=== PATIENT | male | born 1965 | race Caucasian/White ===

== ENCOUNTER 2017-04-03 21:50 | Emergency (ER) | payer OTHER ==
--- NOTE | 2017-04-03 22:30 | EDPHY ---
H & P Stated Complaint: left flank pain, cough HPI/ROS: HPI CHIEF COMPLAINT: Left flank pain, left upper abdominal pain HISTORY OF PRESENT ILLNESS: This patient very pleasant 52-year-old male, history of hypertension who presents emergency room left upper quadrant abdominal pain. Patient states he has had this left upper quadrant pain for approximately 4 days. He has not had any vomiting or diarrhea. The pain is rather severe 8/10 left upper quadrant. Describes sharp stabbing nonradiating. He does report that he fell on that side March 15. Additionally reports he has had a cough. He states the past 2 weeks he had a influenza like illness. He denies any chest pain or shortness of breath. Main complaint left upper quadrant abdominal pain Past Medical History: Hypertension Past Surgical History: Denies surgical history Social History: Denies daily use drugs alcohol tobacco products. Family History: Noncontributory ROS REVIEW OF SYSTEMS: A comprehensive 10 point review of systems is otherwise negative aside from elements mentioned in the history of present illness. Exam Constitutional appears well nontoxic triage nursing summary reviewed, vital signs reviewed, awake/alert. Eyes normal conjunctivae and sclera, EOMI, PERRLA. HENT normal inspection, atraumatic, moist mucus membranes, no epistaxis, neck supple/ no meningismus, no raccoon eyes. Respiratory clear to auscultation bilaterally, normal breath sounds, no respiratory distress, no wheezing. Cardiovascular rate normal, regular rhythm, no murmur, no edema, distal pulses normal. Gastrointestinal tender palpation left upper quadrant, no rebound, no guarding , normal bowel sounds, no distension, no pulsatile mass. Genitourinary no CVA tenderness. Musculoskeletal no midline vertebral tenderness, full range of motion, no calf swelling, no tenderness of extremities, no meningismus, good pulses, neurovascularly intact. Skin pink, warm, & dry, no rash, skin atraumatic. Neurologic awake, alert and oriented x 3, AAOx3, moves all 4 extremities equally, motor intact, sensory intact, CN II-XII intact, normal cerebellar, normal vision, normal speech. Psychiatric normal mood/affect. Heme/Lymph/Immune no lymphadenopathy. Differential diagnosis includes but is not limited to and in no particular order : Splenic infarct, splenic rupture, rib contusions, rib fractures, pneumothorax , pneumonia Bowel obstruction, appendicitis, gallbladder disease, diverticulitis , colitis, enteritis, perforated viscus, gastritis, GERD, esophagitis, urinary tract infection, pyelonephritis, kidney stones Medical Decision Making: Plan for this patient chest x-ray, CT scan abdomen pelvis with IV contrast rule out splenic injury, basic blood work, IV Dilaudid for pain control and IV fluids. Re-evaluate. Re-evaluation: CT scan abdomen pelvis with IV contrast does not show any evidence of splenic injury or splenic rupture CT scan abdomen pelvis with IV contrast does not show any acute inflammatory process. This was called to me by Dr. Bledsoe. Chest x-ray reviewed is unremarkable as well. Blood work is reassuring. Most likely this patient has anterior musculoskeletal versus abdominal wall pain from coughing. Will prescribe a limited supply of Plummer. And albuterol inhaler. Return precautions discussed with him. He understands return emergency room if develops worsening symptoms questions or concerns. Source: Patient - Medical/Surgical History Hx Asthma: No Hx Chronic Respiratory Disease: No Hx Diabetes: No Hx Cardiac Disease: No Hx Renal Disease: No Hx Cirrhosis: No Hx Alcoholism: No Hx HIV/AIDS: No Hx Splenectomy or Spleen Trauma: No - Social History Smoking Status: Heavy smoker Constitutional: Initial Vital Signs Temperature (C) 36.3 C 04/03/17 21:54 Heart Rate 88 04/03/17 21:54 Respiratory Rate 20 04/03/17 21:54 Blood Pressure 135/90 H 04/03/17 21:54 O2 Sat (%) 95 04/03/17 21:54 O2 Delivery Mode Room Air Allergies/Adverse Reactions: No Known Allergies Allergy (Unverified 04/03/17 21:54) Home Medications: Medication Instructions Recorded Albuterol [Proventil Inhaler HFA 1 - 2 puffs IH Q4H #1 mdi 04/04/17 (*)] Hydrocodone/APAP 5/325 [Plummer 1 - 2 tab PO Q4H PRN #10 tab 04/04/17 5/325] Ibuprofen [Motrin (*)] 800 mg PO Q6-8PRN #10 tab 04/04/17 Medical Decision Making - Diagnostics Imaging Results: Imaging Impressions Abdomen CT 04/03/17 22:33 Impression: 1. No evidence of solid organ or bowel injury. Specifically, no splenic laceration. 2. No free fluid or acute fracture. 3. Diverticulosis of the descending and sigmoid colon. Findings discussed with Emergency Department physician, Dylon Parrish MD at 04/04/2017 0:04. Chest X-Ray 04/03/17 22:33 Impression: Mild airways disease and minimal bibasilar atelectasis. No pneumonia or effusion. - Data Points Laboratory Results: Laboratory Results 04/03/17 22:42 04/03/17 22:42 04/03/17 04/03/17 04/03/17 23:14 22:42 22:42 WBC RBC Hgb Hct MCV MCH MCHC RDW Plt Count MPV Neut % (Auto) Lymph % (Auto) [place] % (Auto) Eos % (Auto) Baso % (Auto) Nucleat RBC Rel Count Absolute Neuts (auto) Absolute Lymphs (auto) Absolute Monos (auto) Absolute Eos (auto) Absolute Basos (auto) Absolute Nucleated RBC Immature Gran % Immature Gran # PT 12.8 SEC SEC (12.0-15.0) INR 0.94 (0.83-1.16) APTT 28.1 SEC SEC (23.0-38.0) Sodium 141 mEq/L mEq/L (135-145) Potassium 4.4 mEq/L mEq/L (3.5-5.2) Chloride 103 mEq/L mEq/L (97-110) Carbon Dioxide 27 mEq/l mEq/l (22-31) Anion Gap 11 mEq/L mEq/L (8-16) BUN 19 mg/dL mg/dL (7-23) Creatinine 0.8 mg/dL mg/dL (0.7-1.3) Estimated GFR > 60 Glucose 104 mg/dL H mg/dL (70-100) Calcium 9.8 mg/dL mg/dL (8.5-10.4) Total Bilirubin 0.4 mg/dL mg/dL (0.1-1.4) Conjugated Bilirubin 0.3 mg/dL mg/dL (0.0-0.5) Unconjugated Bilirubin 0.1 mg/dL mg/dL (0.0-1.1) AST 20 IU/L IU/L (17-59) ALT 36 IU/L IU/L (21-72) Alkaline Phosphatase 85 IU/L IU/L (38-126) Total Protein 7.3 g/dL g/dL (6.3-8.2) Albumin 4.2 g/dL g/dL (3.5-5.0) Lipase 158 IU/L IU/L (23-300) Urine Color YELLOW Urine Appearance HAZY Urine pH 5.0 (5.0-7.5) Ur Specific [place] 1.025 (1.002-1.030) Urine Protein NEGATIVE (NEGATIVE) Urine Ketones NEGATIVE (NEGATIVE) Urine Blood NEGATIVE (NEGATIVE) Urine Nitrate NEGATIVE (NEGATIVE) Urine Bilirubin NEGATIVE (NEGATIVE) Urine Urobilinogen 2.0 EU H EU (0.2-1.0) Ur Leukocyte Esterase NEGATIVE (NEGATIVE) Urine Glucose NEGATIVE (NEGATIVE) 04/03/17 22:42 WBC 11.92 10^3/uL H 10^3/uL (3.80-9.50) RBC 5.19 10^6/uL 10^6/uL (4.40-6.38) Hgb 15.5 g/dL g/dL (13.7-17.5) Hct 44.6 % % (40.0-51.0) MCV 85.9 fL fL (81.5-99.8) MCH 29.9 pg pg (27.9-34.1) MCHC 34.8 g/dL g/dL (32.4-36.7) RDW 12.9 % % (11.5-15.2) Plt Count 349 10^3/uL 10^3/uL (150-400) MPV 9.3 fL fL (8.7-11.7) Neut % (Auto) 58.8 % % (39.3-74.2) Lymph % (Auto) 29.8 % % (15.0-45.0) [place] % (Auto) 8.5 % % (4.5-13.0) Eos % (Auto) 1.2 % % (0.6-7.6) Baso % (Auto) 0.5 % % (0.3-1.7) Nucleat RBC Rel Count 0.0 % % (0.0-0.2) Absolute Neuts (auto) 7.02 10^3/uL H 10^3/uL (1.70-6.50) Absolute Lymphs (auto) 3.55 10^3/uL H 10^3/uL (1.00-3.00) Absolute Monos (auto) 1.01 10^3/uL H 10^3/uL (0.30-0.80) Absolute Eos (auto) 0.14 10^3/uL 10^3/uL (0.03-0.40) Absolute Basos (auto) 0.06 10^3/uL 10^3/uL (0.02-0.10) Absolute Nucleated RBC 0.00 10^3/uL 10^3/uL (0-0.01) Immature Gran % 1.2 % H % (0.0-1.1) Immature Gran # 0.14 10^3/uL H 10^3/uL (0.00-0.10) PT INR APTT Sodium Potassium Chloride Carbon Dioxide Anion Gap BUN Creatinine Estimated GFR Glucose Calcium Total Bilirubin Conjugated Bilirubin Unconjugated Bilirubin AST ALT Alkaline Phosphatase Total Protein Albumin Lipase Urine Color Urine Appearance Urine pH Ur Specific [place] Urine Protein Urine Ketones Urine Blood Urine Nitrate Urine Bilirubin Urine Urobilinogen Ur Leukocyte Esterase Urine Glucose Medications Given: Discontinued Medications Hydromorphone HCl (Dilaudid) 1 mg IVP EDNOW ONE Stop: 04/03/17 22:34 Last Admin: 04/03/17 22:39 Dose: 1 mg Sodium Chloride (Ns) 1,000 mls @ 0 mls/hr IV EDNOW ONE; Wide Open PRN Reason: Protocol Stop: 04/03/17 22:34 Last Admin: 04/03/17 22:39 Dose: 1,000 mls Ondansetron HCl (Zofran) 4 mg IVP EDNOW ONE Stop: 04/03/17 22:34 Last Admin: 04/03/17 22:39 Dose: 4 mg Departure - Departure Disposition: Home, Routine, Self-Care Clinical Impression: Chest wall pain, Abdominal wall pain Condition: Good Instructions: Thoracic Pain (ED), Chest Wall Pain (ED) Additional Instructions: 1. Rest. 2. Return emergency room if there is worsening symptoms questions or concerns. 3. Anti-inflammatory pain medicine for mild pain. 4. Plummer for severe pain. Referrals: Natalie Brownlee MD [Primary Care Provider] - As per Instructions Prescriptions: Albuterol [Proventil Inhaler HFA (*)] 1 - 2 puffs IH Q4H #1 mdi Hydrocodone/APAP 5/325 [Plummer 5/325] 1 - 2 tab PO Q4H PRN #10 tab PRN Reason: Pain, Moderate Ibuprofen [Motrin (*)] 800 mg PO Q6-8PRN #10 tab
[2017-04-03] MEDS ORDERED: NS 1,000 ML IV ONE (22:33)
[2017-04-03] MEDS ORDERED: HYDROmorphONE/DILAUDID 1 MG/ML INJ IVP ONE (22:33)
[2017-04-03] MEDS ORDERED: ONDANSETRON 4 MG/2 ML VIAL IVP ONE (22:33)
[2017-04-03 22:48] LABS: PLATELET COUNT 349 10^3/uL (150-400)
[2017-04-03 22:57] LABS: INR 0.94 (0.83-1.16); PROTIME(PATIENT) 12.8 SEC (12.0-15.0)
[2017-04-03] MEDS ORDERED: IOPAMIDOL (ISOVUE-300) 100 ML BTL ONE (23:15)
[2017-04-04 00:56] VITALS: BP 151/97; PULSE 93; RESP 16; TEMP 97.5; O2SAT 93
== END 2017-04-04 00:54 | disposition home or self-care (01) ==
DX: R10.12 Left upper quadrant pain (principal); R07.89 Other chest pain; I10 Essential (primary) hypertension; F17.200 Nicotine dependence, unspecified, uncomplicated; E86.9 Volume depletion, unspecified
CPT/HCPCS: 96374; J1170; J2405; Q9967

== ENCOUNTER → 2018-01-06 | Outpatient (CLI) | payer OTHER | LOC: FIMAGING 15:01 | PROVIDERS: ATTEND Internal Medicine | DX: R55 Syncope and collapse (principal); I10 Essential (primary) hypertension ==